=== PATIENT | male | born 1980 | race Caucasian/White ===

== ENCOUNTER → 2016-09-11 | Outpatient (CLI) | payer OTHER ==
[~2016-09-11] MED LIST: MAGNEVIST IV PRN
--- NOTE | 2016-09-11 12:03 | DIAGNOSTIC IMAGING REPORT ---
FLUOROSCOPICALLY GUIDED LEFT SHOULDER ARTHROGRAM PRIOR TO MRI CLINICAL HISTORY: Left shoulder pain. COMPARISON STUDY: No previous studies for comparison. Fluoroscopy time: 18 seconds. PROCEDURE: The procedure, risks and benefits were discussed with the patient and informed written consent was obtained. The procedure was performed by Dr. Escobedo. Skin overlying the left glenohumeral joint was prepped and draped in sterile fashion and local anesthesia was achieved with 1% lidocaine. Under intermittent fluoroscopic guidance, a 2 1/2 inch 22-gauge needle was directed into the left glenohumeral joint. Positioning within the joint space was confirmed with injection a small amount of contrast. At this time, a mixture of 0.1 cc of gadolinium, 10 cc of normal saline and 10 cc of Optiray 300 was injected into the left glenohumeral joint. The needle was removed. The patient tolerated the procedure well and no immediate complications were evident. The patient was transported to MRI. One fluoroscopic image was obtained. IMPRESSION: Fluoroscopically guided left shoulder arthrogram prior to MRI. Electronically signed by: Jonathon Escobedo M.D. 09/11/2016 12:01 PM
--- NOTE | 2016-09-11 12:36 | DIAGNOSTIC IMAGING REPORT ---
LEFT SHOULDER MRI with INTRA-ARTICULAR CONTRAST HISTORY: LEFT SHOULDER PAIN TECHNIQUE: Multiplanar multisequence MRI of the left shoulder was performed following the intra-articular injection of contrast. COMPARISON STUDY: None. FINDINGS: AC joint: Intact Rotator cuff: Increased T2 signal within the mid to distal supraspinatus tendon consistent with tendinopathy. The infraspinatus, teres minor, and subscapularis tendons are intact. No contrast within the subacromial/subdeltoid bursa to suggest a full-thickness tear. Labrum: Intact Biceps tendon: Intact Bones: Intact Cartilage: Intact IMPRESSION: 1. Supraspinatus tendinopathy. No evidence for full-thickness rotator cuff tear. 2. The labrum appears intact. Electronically signed by: Jesus Alberto Keith M.D. 09/11/2016 12:34 PM
== END | disposition home or self-care (01) ==
LOC: C.MRIBC 11:13
PROVIDERS: ATTEND Family Medicine
DX: M25.512 Pain in left shoulder (principal)